=== PATIENT | female | born 1950 | race Caucasian/White ===

== ENCOUNTER 2019-09-03 12:00 | Outpatient (CLI) | payer MEDICARE, SELFPAY | END 2019-09-03 12:01 | disposition home or self-care (01) | LOC: SLEEP 09-08 08:51 | PROVIDERS: Family Provider Family Medicine; PCP Family Medicine; Visit Provider Family Medicine | DX: G47.30 Sleep apnea, unspecified (principal) | CPT/HCPCS: G0399 ==

== ENCOUNTER 2020-02-16 20:00 | Outpatient (CLI) | payer MEDICARE, SELFPAY | END 2020-02-16 20:01 | disposition home or self-care (01) | LOC: SLEEP 02-17 10:01 | PROVIDERS: Family Provider Family Medicine; PCP Family Medicine; Visit Provider Family Medicine | DX: G47.30 Sleep apnea, unspecified (principal) | CPT/HCPCS: 95811 ==

== ENCOUNTER → 2022-06-21 07:49 | Outpatient (BNVA) | payer MEDICARE, SELFPAY | PROVIDERS: Family Provider Family Medicine; PCP Family Medicine; Visit Provider Specialist | DX: M17.0 Bilateral primary osteoarthritis of knee (principal) | CPT/HCPCS: 73560; 73565; 99204 ==

== ENCOUNTER → 2022-08-10 08:48 | Outpatient (BNVA) | payer MEDICARE, SELFPAY | PROVIDERS: Family Provider Family Medicine; PCP Family Medicine; Visit Provider Specialist | DX: M17.0 Bilateral primary osteoarthritis of knee (principal) | CPT/HCPCS: 20610; J7318 ==

== ENCOUNTER → 2023-02-06 10:38 | Outpatient (BNVA) | payer MEDICARE, SELFPAY | PROVIDERS: Family Provider Family Medicine; PCP Family Medicine; Visit Provider Nurse Practitioner Family | DX: L90.0 Lichen sclerosus et atrophicus (principal); D22.5 Melanocytic nevi of trunk; L81.4 Other melanin hyperpigmentation; L85.3 Xerosis cutis; L57.0 Actinic keratosis | CPT/HCPCS: 17000; 17003; 99213 ==

== ENCOUNTER → 2023-02-08 14:06 | Outpatient (BNVA) | payer MEDICARE, SELFPAY | PROVIDERS: Family Provider Family Medicine; PCP Family Medicine; Visit Provider Specialist | DX: M17.0 Bilateral primary osteoarthritis of knee (principal) | CPT/HCPCS: 20610; J7318 ==

== ENCOUNTER → 2023-05-17 10:48 | Outpatient (BNVA) | payer MEDICARE, SELFPAY | PROVIDERS: Family Provider Family Medicine; PCP Family Medicine; Visit Provider Specialist | DX: M17.0 Bilateral primary osteoarthritis of knee (principal) | CPT/HCPCS: 20610; J1100; J2795; J3301 ==

== ENCOUNTER → 2023-08-16 09:27 | Outpatient (BNVA) | payer MEDICARE, SELFPAY | PROVIDERS: Family Provider Family Medicine; PCP Family Medicine; Visit Provider Specialist | DX: M17.0 Bilateral primary osteoarthritis of knee (principal) | CPT/HCPCS: 20610; J1100; J2795; J3301 ==

== ENCOUNTER 2023-10-09 12:03 | Inpatient (IN) | payer MEDICARE, SELFPAY ==
[2023-10-09] VITALS (8 sets, daily range): BP systolic 134–181; BP diastolic 77–87; PULSE 81–95; RESP 17–24; TEMP 36.5–36.7; O2SAT 79–94; BMI 51.3; BMI 51.7
--- NOTE | 2023-10-09 12:14 | XR_ITS ---
WS: [id number] Portable AP upright chest, 10/09/2023 Clinical Data: sob Comparison: None. Findings: No nodules, masses or effusions are seen. The heart is slightly enlarged. The pulmonary vas cularity is not increased. No pneumonia or pneumothorax is seen. The aortic arch shows mild tortuosit y Impression: Cardiomegaly and atherosclerosis.
--- NOTE | 2023-10-09 12:16 | ECG_ITS ---
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 Measurements Intervals [place] Rate: 88 P: 81 TN: 164 QRS: 51 QRSD: 89 T: 74 QT: 369 QTc: 447 Interpretive Statements SINUS RHYTHM No previous ECG available for comparison Electronically Signed On 10-09-2023 21:30:48 CDT by Jake Montgomery M.D. [id number]
[2023-10-09 12:24] LABS: ABG PH Result 7.48 (7.35-7.45); Arterial Blood Gas Hematocrit 42.7 % (37-47); Blood Gas Allen Test Pos; Blood Gas Operator Identificat WALCI; Blood Gas Sample Site Radial, left; Blood Gas Sample Type Arterial; Carboxyhemoglobin 0.5 %THgb (0.4-20.1); HCO3 ABG 26.5 mmol/L (22-26); HGB O2 Sat 86.8 % (95-100); Methemoglobin 0.2 % (0.4-1.5); Oxygen Device ROOM AIR; PO2 ABG 51.2 mmHg (80.0-100.0); PO2 FiO2 Ratio Arterial Blood 0; Total Hemoglobin 13.9 g/dL (12-16)
--- NOTE | 2023-10-09 12:24 | W.ED.SOB ---
HPI - SOB/Dyspnea General: Chief Complaint: Shortness of Breath/Dyspnea Stated Complaint: sob Time Seen by Provider: 10/09/23 12:04 Source: patient Mode of arrival: ambulatory Limitations: no limitations History of Present Illness: HPI Narrative: 73-year-old female is sent here from the clinic for shortness of breath. She states she has a history of allergies and over the last week she has had a nonproductive cough with congestion states she is also has increasing exertional dyspnea. Patient states that her pulse ox was in the low 80s at her physician's office. At rest here her pulse ox is 90%9 Associated symptoms: Deny abdominal pain, chest pain, fever(s), nausea or vomiting Review of Systems Const: Denies: fever(s) or chills ENMT: Denies: throat pain or dental pain Card: Denies: chest pain Resp: Reports: dyspnea and non-productive cough GI: Denies: abdominal pain, nausea, vomiting or diarrhea Musc: Denies: neck pain or back pain Skin/Breast: Denies: rash Neuro: Denies: headache(s) PFSH ED PFSH: Surgical History H/O lateral meniscus repair of left knee Family History Mother Diabetes Father Diabetes Social History Smoking and tobacco/nicotine status: former use of tobacco/nicotine Second hand smoke exposure: No Alcohol intake: current Alcohol intake frequency: holidays/special occasions only Alcohol type: wine Substance/Drug Use: never Adopted: No Caregiver/support person: No Lives independently: Yes Household members: family Housing: House Number of children: 1 Number of grandchildren: 4 Highest education level completed: Some College, No Degree service: No Current occupational status: retired Current occupational exposures/hazards: No Pets and animals: Yes Sexually active: No Do you think of yourself as: Straight/Heterosexual Current gender identity: Female Special elinor needs: No Agree to transfusion: Yes Physical Exam Const: COMMON NORMALS: patient oriented x3 HENMT: COMMON NORMALS: normocephalic and atraumatic HEAD & SCALP: normocephalic and atraumatic Eye: COMMON NORMALS: conjunctivae normal CONJUNCTIVA: Yes conjunctivae normal Neck/C-Spine: COMMON NORMALS: full ROM and supple Chest: COMMONS NORMALS: normal inspection of the chest and normal palpation of entire chest wall Resp: COMMON NORMALS: normal respiratory effort, No retractions, No use of accessory muscles and clear to auscultation bilaterally AUSCULTATION: clear to auscultation bilaterally Cardio: COMMON NORMALS: regular rate, regular rhythm and No murmurs present (Cardio) RATE: regular rate RHYTHM: regular rhythm Extremity: COMMON NORMALS: normal to inspection and full ROM Neuro: COMMON NORMALS: patient oriented x3, moves all extremities and no focal motor deficits Psych: COMMON NORMALS: mental status grossly normal, Normal thought process present and cooperative THOUGHT PROCESS: Normal thought process present Skin: COMMON NORMALS: no rashes or lesions noted and no wounds GENERAL SKIN EXAM: no rashes or lesions noted Course Vital Signs: Vital signs: Vital Signs Temperature 98.0 F 10/09/23 12:07 Pulse Rate 84 10/09/23 12:48 Respiratory Rate 17 10/09/23 12:41 Blood Pressure 181/77 10/09/23 12:07 Pulse Oximetry 94 10/09/23 12:41 Oxygen Delivery Me thod Nasal Cannula 10/09/23 12:41 Oxygen Flow Rate 2 10/09/23 12:41 MDM - SOB/Dyspnea Medical Decision Making Patient presents here with shortness of breath especially exertional CTA does show pulmonary emboli she is requiring 2 L oxygen here will start on heparin I spoke to hospitalist will admit at this time. Medical Records I reviewed the patient's medical records. Lab Data I reviewed the patient's lab results. 10/09/23 12:51 10/09/23 12:51 Labs/Radiology: Laboratory Results WBC 10.33 10^3/uL (3.29-11.43) 10/09/23 12:51 RBC 5.31 10^6/uL (3.85-5.65) 10/09/23 12:51 Hgb 13.60 g/dL (11.27-16.99) 10/09/23 12:51 Hct 44.4 % (36-47) 10/09/23 12:51 MCV 83.6 fl (85-98) L 10/09/23 12:51 MCH 25.6 pg (27-33) L 10/09/23 12:51 MCHC 30.6 g/dL (30-55) 10/09/23 12:51 RDW 14.7 % (12.1-15.1) 10/09/23 12:51 Plt Count 244 10^3/cmm (157-399) 10/09/23 12:51 MPV 10.6 fL (7.4-10.4) H 10/09/23 12:51 Neut % (Auto) 72.6 % 10/09/23 12:51 Lymph % (Auto) 19.7 % 10/09/23 12:51 [place] % (Auto) 5.9 % 10/09/23 12:51 Eos % (Auto) 0.9 % 10/09/23 12:51 Baso % (Auto) 0.4 % 10/09/23 12:51 Neut # (Auto) 7.50 10^3/uL (1.8-7.7) 10/09/23 12:51 Lymph # (Auto) 2.0 10^3/uL (0.8-4.8) 10/09/23 12:51 [place] # (Auto) 0.6 10^3/uL (0.2-0.9) 10/09/23 12:51 Eos # (Auto) 0.1 10^3/uL (0.0-0.8) 10/09/23 12:51 Baso # (Auto) 0.0 10^3/uL (0.0-0.1) 10/09/23 12:51 Nucleated RBC % (auto) 0 % 10/09/23 12:51 Nucleated RBCs # 0.0 /100WBC 10/09/23 12:51 D-Dimer 8.66 ug/mLFEU (0-0.59) H 10/09/23 12:51 Specimen Type Arterial 10/09/23 12:13 Sample Site Radial, left 10/09/23 12:13 ABG pH 7.48 (7.35-7.45) H 10/09/23 12:13 ABG pCO2 36.0 mmHg (35-45) 10/09/23 12:13 ABG pO2 51.2 mmHg (80.0-100.0) L 10/09/23 12:13 ABG PO2/FiO2 Ratio 0 10/09/23 12:13 ABG HCO3 26.5 mmol/L (22-26) H 10/09/23 12:13 ABG Base Excess 3.0 mmol/L (-2.0-2.0) H 10/09/23 12:13 Sal Test Pos 10/09/23 12:13 Hematocrit 42.7 % (37-47) 10/09/23 12:13 Hgb O2 Saturation 86.8 % (95-100) L 10/09/23 12:13 Carboxyhemoglobin 0.5 %THgb (0.4-20.1) 10/09/23 12:13 Methemoglobin 0.2 % (0.4-1.5) L 10/09/23 12:13 Total Hemoglobin 13.9 g/dL (12-16) 10/09/23 12:13 O2 Delivery Device Room air 10/09/23 12:13 FiO2 21.0 % 10/09/23 12:13 Assistant Golf Professional ID [place] 10/09/23 12:13 Sodium 137 mmol/L (136-145) 10/09/23 12:51 Potassium 4.0 mmol/L (3.5-5.1) 10/09/23 12:51 Chloride 98 mmol/L (98-107) 10/09/23 12:51 Carbon Dioxide 25 mmol/L (22-29) 10/09/23 12:51 Anion Gap 18.0 (5-19) 10/09/23 12:51 BUN 14 mg/dL (8-23) 10/09/23 12:51 Creatinine 0.7 mg/dL (0.5-0.9) 10/09/23 12:51 GFR Calculation Not Reportable 10/09/23 12:51 Glucose 97 mg/dL (65-115) 10/09/23 12:51 Calculated Osmolality 284 mOsm/kg (285-295) L 10/09/23 12:51 Calcium 9.3 mg/dL (8.5-10.5) 10/09/23 12:51 Total Bilirubin 0.9 mg/dL (0.15-1.2) 10/09/23 12:51 AST 20 U/L (0-32) 10/09/23 12:51 ALT 15 U/L (0-33) 10/09/23 12:51 Alkaline Phosphatase 111 U/L (35-105) H 10/09/23 12:51 NT-Pro-B Natriuret Pep 69 pg/mL (0-125) 10/09/23 12:51 Total Protein 7.0 g/dL (6.6-8.7) 10/09/23 12:51 Albumin 4.1 g/dL (3.5-5.2) 10/09/23 12:51 Globulin 2.9 g/dL (1.3-4.6) 10/09/23 12:51 Influenza Type A Ag Negative (Negative) 10/09/23 12:47 Influenza Type B Ag Negative (Negative) 10/09/23 12:47 SARS-CoV-2 Ag (Rapid) negative (Negative) 10/09/23 12:47 All radiology interpretation(s) finalized by discharge EKG Data EKG 1: I personally reviewed and interpreted this EKG as follows: EKG Interpretation Date: 10/09/23 EKG interpretation time: 12:16 Interpretation: nsr hr [address] or t wave abnormalities qrs 89 qtc 414 Critical Care Time Critical Care Time: Critical Care Time: Yes Total Critical Care Time: 40 Attestation: The high probability of a clinically significant, sudden or life threatening deterioration of the patient's respsystem(s) required my full and direct attention, intervention and personal management. The critical care time is as shown. This time is in addition to time spent performing any reported procedures but includes the following: [x] Data and vital sign review and interpretation [x] Patient assessment, examination and intervention [x] Documentation [x] Medication orders and management Discharge Plan Discharge Condition: Stable Prescriptions: No Action lisinopril-hydrochlorothiazide 20-25 mg tablet 1 tab PO QAM amlodipine 5 mg tablet 10 mg PO QAM fluticasone propionate [Flonase Allergy Relief] 50 mcg/actuation spray,suspension 1 spray intranasal DAILY PRN (Reason: Allergy Symptoms) Rx Instructions: administer into each nostril multivitamin Tablet 1 tab PO DAILY potassium chloride 10 mEq tablet extended release 10 meq PO QAM levothyroxine 100 mcg tablet 100 mcg PO QAM albuterol sulfate 90 mcg/actuation Hfa Aerosol Inhaler 2 puff INHALATION QID PRN (Reason: Shortness Of Breath Or Wheezing) fluoxetine 20 mg capsule 20 mg PO QAM Prilosec OTC 20 mg Tablet,Delayed Release (Dr/Ec) 20 mg PO .TWICE A WEEK magnesium oxide 400 mg magnesium Tablet 400 mg PO QAM clobetasol 0.05 % ointment 1 applic topical BID PRN (Reason: unknown) Rx Instructions: Apply to affected area no more than 2 weeks per month, not for face or skin folds. betamethasone dipropionate 0.05 % ointment 1 applic topical DAILY PRN (Reason: unknown) Rx Instructions: Apply to affected area M-F X 3 weeks, then as needed. Referrals: Emerald Knight MD [Primary Care Provider] - Coding Level of Care Code ED Rental Manager for [facility] Jose Alfredo
[2023-10-09] MEDS: ipratropium-albuterol 3 mL Neb INHALATION (12:40)
[2023-10-09 13:12] LABS: Basophils % 0.4 %; Eosinophils # 0.1 10^3/uL (0.0-0.8); Eosinophils % 0.9 %; Hematocrit 44.4 % (36-47); Lymphocytes % 19.7 %; Mean Corpuscular HGB Conc 30.6 g/dL (30-55); Mean Corpuscular Hemoglobin 25.6 pg (27-33); Mean Corpuscular Volume 83.6 fl (85-98); Mean Platelet Volume 10.6 fL (7.4-10.4); Monocytes # 0.6 10^3/uL (0.2-0.9); Monocytes % 5.9 %; Neutrophils % 72.6 %; Nucleated Red Blood Cells % 0 %; Platelet Count 244 10^3/cmm (157-399); Red Blood Count 5.31 10^6/uL (3.85-5.65); Red Cell Distribution Width 14.7 % (12.1-15.1); White Blood Count 10.33 10^3/uL (3.29-11.43)
[2023-10-09] MEDS: methylPREDNISolone sod succ 125 mg/2 mL INJ IVP (13:23)
[2023-10-09 13:24] LABS: SARS Covid-2 Antigen negative (Negative)
[2023-10-09 13:35] LABS: D Dimer 8.66 ug/mLFEU (0-0.59)
[2023-10-09 13:39] LABS: Influenza A by IFA Negative (Negative); Influenza B by IFA Negative (Negative)
--- NOTE | 2023-10-09 13:41 | CT_ITS ---
WS: [id number] CTA OF THE CHEST WITH PULMONARY EMBOLISM PROTOCOL TECHNIQUE: High-resolution contrast enhanced CTA of the chest with coronal and sagittal reformatted i mages with pulmonary embolism protocol. MIP images are also reviewed. CLINICAL INFORMATION: sob COMPARISON: None. DLP: 708.[address] scans at [facility] use at least one of these dose optimization techniques: automated e xposure control; mA and/or kV adjustment per patient size (includes targeted exams where dose is matc hed to clinical indication); or iterative reconstruction. FINDINGS: Proximal main pulmonary arteries are normal. Filling defects in the RIGHT greater than LEFT segmental and subsegmental pulmonary arteries bilaterally compatible with acute bilateral pulmonary embolus. E vidence of RIGHT heart strain. Recommend further evaluation with echocardiography. Normal caliber tho racic aorta. Subsegmental atelectasis in the lung bases. Cardiomegaly. No mediastinal or hilar lympha denopathy. No axillary lymphadenopathy. Small esophageal hiatal hernia. RIGHT adrenal adenoma. LEFT a drenal gland is normal. Hypertrophic changes thoracic spine. Calcified granulomas. Slight hazy ground glass attenuation within both lungs with shallow inspiration IMPRESSION: 1. Extensive bilateral acute pulmonary embolus in the RIGHT greater than LEFT segmental and subsegme ntal pulmonary arteries. 2. Evidence of RIGHT heart strain. Recommend echocardiography. 3. Shallow inspiration with bibasilar atelectasis and hazy groundglass attenuation likely due to air trapping. 4. Cardiomegaly. 5. Small esophageal hernia. Notified Basia Jansen MD at 10/09/2023 2:49 PM.
[2023-10-09 13:55] LABS: Alanine Aminotransferase 15 U/L (0-33); Albumin Level 4.1 g/dL (3.5-5.2); Alkaline Phosphatase 111 U/L (35-105); Blood Urea Nitrogen 14 mg/dL (8-23); Calcium 9.3 mg/dL (8.5-10.5); Carbon Dioxide 25 mmol/L (22-29); Chloride 98 mmol/L (98-107); Creatinine Clr Calc Pharmacy 93.6007; Globulin 2.9 g/dL (1.3-4.6); Glucose 97 mg/dL (65-115); NT Pro B Type Natriuretic Pept 69 pg/mL (0-125); Osmolality Calculated 284 mOsm/kg (285-295); Sodium 137 mmol/L (136-145); Total Bilirubin 0.9 mg/dL (0.15-1.2)
[2023-10-09 14:07] LABS: Aspartate Amino Transferase 20 U/L (0-32)
[2023-10-09] MEDS: iohexol 350 mg/mL 500 mL Btl (per mL) IV (14:43)
[2023-10-09 15:23] LABS: Troponin(5th) Baseline 15 ng/L (0-10)
[2023-10-09 15:29] LABS: Troponin 5 2HR 15.07 ng/L (0-10)
--- NOTE | 2023-10-09 15:31 | USCV_ITS ---
Elle Hilton Age: 73 Gender: F : 1950 Exam Date: 10/09/2023 18:21 Ordering Phys: Moshe Mccoy MD Technologist: CHAD [place] [facility] [place]: order says: pe, right heart strain. Patient was admitted for shortness of breath x 2 weeks. No hx cardiac intervention. BP: 181 / 77 HR: 79 Rhythm: Sinus Technical Quality: Adequate MEASUREMENTS (Male / Female) Normal Values 2D ECHO LV Diastolic Diameter PLAX 4.0 cm 4.2 - 5.9 / 3.9 - 5.3 cm IVS Diastolic Thickness 1.7 cm 0.6 - 1.0 / 0.6 - 0.9 cm IVS Systolic Thickness 2.0 cm LVPW Diastolic Thickness 1.5 cm 0.6 - 1.0 / 0.6 - 0.9 cm LVPW Systolic Thickness 1.6 cm LVOT Diameter 1.8 cm LV Ejection Fraction 2D Teich 58.3 % LV Ejection Fraction MOD 2C 69.5 % LV Ejection Fraction 2C AL 71.7 % LA Diameter 4.2 cm Aorta at Sinotubular Diameter 2.6 cm IVC Diameter 1.7 cm M-MODE LA Ao Ratio MM 1.5 AV Cusp Separation MM 1.8 cm DOPPLER AV Peak Velocity 197.0 cm/s LVOT Peak Velocity 146.0 cm/s AV Area Cont Eq vti 2.0 cm squared AV Area Cont Eq pk 1.9 cm squared MV Peak Velocity 117.0 cm/s MV Area PHT 3.1 cm squared Mitral E to A Ratio 0.6 TV Peak Velocity 252.5 cm/s TR Peak Velocity 267.0 cm/s TR Peak Gradient 28.5 mmHg TV Peak E Velocity 38.0 cm/s Right Atrial Pressure 3.0 mmHg Pulmonary Artery Systolic Pressu 31.5 mmHg PV Peak Velocity 94.0 cm/s FINDINGS Left Ventricle Left ventricle is normal in size. LV systolic function is normal with EF of 55 to 60%. No regional wall motion abnormalities are seen. Grade 1 diastolic dysfunction. Right Ventricle Normal in size and function Right Atrium Normal in size Left Atrium Normal in size Mitral Valve Structurally normal mitral valve. Aortic Valve Grossly normal. No significant stenosis or regurgitation. Tricuspid Valve Mild tricuspid regurgitation. Pulmonary artery systolic pressure is normal. Pulmonic Valve Not well visualized Pericardium Normal Aorta Mildly dilated ascending aorta with diameter of 3.6 cm. IVC Appears to be normal CONCLUSIONS LV systolic function is normal with EF of 55-60% Grade 1 diastolic dysfunction Mild tricuspid regurgitation Mildly dilated ascending aorta with diameter of 3.6cm No comparison studies are available Jake Montgomery MD (Electronically Signed) Final Date: 10 October 2023 11:39 S
--- NOTE | 2023-10-09 15:34 | P.HP_ITS ---
Providers/Chief Complaint 2 Primary Care Provider: Emerald Knight MD Chief Complaint: sob History of Present Illness Elle Hilton is a 73 year old female with past medical history of hypothyroidism, hypertension was sent in today from the primary care's office because of hypoxia. As per the patient she has been having difficulty in breathing which has been getting worse over last 2 weeks. At the primary care's office today on walk test her saturations dropped down to low 80s on room air hence she came to the ER. In the ER she was found to have elevated D-dimer and subsequently found to have bilateral pulmonary embolism with concerns for right heart strain. On examination she is sitting comfortably in bed, heart rate of 70 bpm saturating 94% on 2 L with blood pressure of 160/80 mmHg. Denies any chest pain, nausea, vomiting, headache, dizziness, history of bleeding diathesis, melena, history of stroke, recent sick contacts, but does give history of recent congestion and symptoms concerning for allergies though denies any fevers. Review of Systems 2 General: Reports: 10 or more systems reviewed and unremarkable except in HPI and below Const: Denies: fever(s), chills, body aches, change in appetite, change in weight, malaise, night sweats, diaphoresis, change in sleep pattern, daytime sleepiness or snoring Eyes: Denies: change in vision, blurry vision, photophobia, eye discomfort or eye discharge ENMT: Denies: throat pain, enlarged tonsils, hoarseness, mouth pain, oral sores, dry mouth, tinnitus, nasal congestion or post nasal drip Card: Denies: chest pain, palpitations, irregular heart rhythm, edema, swelling of feet/ankles, lightheadedness, syncope, pre-syncope, dyspnea on exertion, orthopnea, leg pain with exertion or acrocyanosis Resp: Denies: dyspnea, productive cough, non-productive cough, wheezing, stridor, pain on inspiration, change in phlegm color, hemoptysis or chest congestion GI: Denies: abdominal pain, nausea, vomiting, hematemesis, coffee ground emesis, dysphagia, heartburn, diarrhea, constipation, bloating, GI cramping, change in bowel habits, pain on defecation, hematochezia or melena : Denies: flank pain, dysuria, urinary frequency, urinary urgency, urinary hesitancy, nocturia or hematuria Musc: Denies: neck pain, back pain, extremity pain, joint pain, joint swelling, joint redness, joint stiffness or limited range of motion Neuro: Denies: headache(s), numbness in extremities, weakness in extremities, sensory changes, lack of coordination, difficulty walking, frequent falls, dizziness, vertigo, confusion, Slurred speech present, difficulty communicating thoughts or seizure-like activity Psych: Denies: anxiety, depression, mood swings, panic attacks, hopelessness or irritability Endo: Denies: polyuria, polydipsia, tired all the time, cold intolerance, excessive sweating, flushing or heat intolerance [place]onaldo/Lymph: Denies: easy bruising or easy bleeding All/Imm: Denies: tongue swelling, facial swelling or acute wheezing Medications/Allergies Home Medications Medication Instructions Recorded Confirmed Last Taken Type amlodipine 5 mg tablet 10 mg PO QA 06/21/22 10/09/23 10/09/23 History fluticasone propionate 50 1 spray intranasal DAILY PRN 06/21/22 10/09/23 Unknown History mcg/actuation nasal Allergy Symptoms spray,suspension (Flonase Allergy Relief) lisinopril 20 1 tab PO QAM 06/21/22 10/09/23 10/09/23 History mg-hydrochlorothiazide 25 mg tablet albuterol sulfate 90 mcg/actuation 2 puff inhalation QID PRN 10/09/23 10/09/23 Unknown History aerosol inhaler Shortness Of Breath Or Wheezing betamethasone dipropionate 0.05 % 1 applic topical DAILY PRN unknown 10/09/23 10/09/23 Unknown History topical ointment clobetasol 0.05 % topical ointment 1 applic topical BID PRN unknown 10/09/23 10/09/23 Unknown History fluoxetine 20 mg capsule 20 mg PO QAM 10/09/23 10/09/23 10/09/23 History levothyroxine 100 mcg tablet 100 mcg PO QAM 10/09/23 10/09/23 10/09/23 History magnesium oxide 400 mg PO QAM 10/09/23 10/09/23 10/09/23 History multivitamin 1 tab PO DAILY 10/09/23 10/09/23 Unknown History omeprazole magnesium 20 mg 20 mg PO .TWICE A WEEK 10/09/23 10/09/23 Unknown History tablet,delayed release (Prilosec OTC) potassium chloride 10 mEq 10 meq PO QAM 10/09/23 10/09/23 10/09/23 History tablet,extended release Allergies Allergy/AdvReac Type Severity Reaction Status Date / Time Penicillins Allergy Mild hives Verified 10/09/23 13:00 PFSH Acute 2 PFSH: Medical History (Updated 10/09/23 @ 15:50 by Moshe Mccoy MD) Hypothyroid Hypertension Surgical History (Updated 10/09/23 @ 15:50 by Moshe Mccoy MD) H/O: hysterectomy H/O lateral meniscus repair of left knee Family History Mother Diabetes Father Diabetes Social History Smoking and tobacco/nicotine status: former use of tobacco/nicotine Second hand smoke exposure: No Alcohol intake: current Alcohol intake frequency: holidays/special occasions only Alcohol type: wine Substance/Drug Use: never Adopted: No Caregiver/support person: No Lives independently: Yes Household members: family Housing: House Number of children: 1 Number of grandchildren: 4 Highest education level completed: Some College, No Degree service: No Current occupational status: retired Current occupational exposures/hazards: No Pets and animals: Yes Sexually active: No Do you think of yourself as: Straight/Heterosexual Current gender identity: Female Special elinor needs: No Agree to transfusion: Yes Vitals/I&O/Wt Last Vital Signs Temp 98.0 F 10/09/23 12:07 Pulse 84 10/09/23 12:48 Resp 17 10/09/23 12:41 BP 181/77 10/09/23 12:07 Pulse Ox 94 10/09/23 12:41 O2 Del Method Nasal Cannula 10/09/23 12:41 O2 Flow Rate 2 10/09/23 12:41 Weight last 48 hrs Weight 144.242 kg Physical Exam 2 Narrative: General: No acute distress, AO x3, morbidly obese HEENT: PERRLA, pupils bilaterally equal and reactive Chest: Normal vesicular breath sounds, no added sounds, equal good air entry bilaterally CVS: S1-S2 regular, no murmurs, no tachycardia, no gallops, no rubs Abdomen: Soft, nontender, no organomegaly, bowel sounds present Neuro: No focal deficits, no facial deformity, AO x3, power 5/5 in all limbs Data 10/09/23 12:51 10/09/23 12:51 A&P Assessment and plan (1) Pulmonary embolism with acute cor pulmonale: Seen on CTA. Concerns for right heart strain on CTA. Check lower limb Dopplers and echocardiogram. Oxygen supplementation keeping saturation over 90%. Start on heparin drip. Will plan for heparin drip for next 24 to 48 hours and then transition to oral anticoagulation. Patient does not have personal or family history of blood clots in the past, denies any sedentary lifestyle, recent long travels. Will plan for CT abdomen pelvis with contrast within next 24 hours to complete the workup to rule out malignancy. CTA of the chest negative for lymphadenopathy or mass. (2) Breathlessness on exertion: (3) Morbid obesity with BMI of 45.0-49.9, adult: (4) Hypertension: Goal blood pressure less than 140/90 mmHg. Continue with home dose of amlodipine, lisinopril and hydrochlorothiazide. Uptitrate as for goal blood pressures. Plan History of sleep apnea on BiPAP: Continue home settings. CODE STATUS: Daughter will be DPOA. Full code. Cardiac diet. Heparin drip will be sufficient for DVT prophylaxis Protonix for PUD prophylaxis Attestations 2 Medical Necessity Statement*: Admission for more than 2 midnights for management of bilateral pulmonary embolism with right heart strain Diagnoses Pulmonary embolism with acute cor pulmonale I26.09 Breathlessness on exertion R06.81 Morbid obesity with BMI of 45.0-49.9, adult E66.01; Z68.42 Hypertension I10
[2023-10-09 15:35] LABS: Troponin 5 2HR Delta 0.07 ABS# (0-10)
[2023-10-09] MEDS: heparin 5,000 unit/mL INJ 1 mL 4000 UNIT IVP (15:38)
[2023-10-09] MEDS: heparin drip 25,000 UNIT/500 ML PREMIX 34.6199999999999974 UNIT IV (15:43)
[2023-10-09 16:39] LABS: Thyroid Stimulating Hormone 2.42 uIU/mL (0.27-4.20)
--- NOTE | 2023-10-09 16:45 | ECG_ITS ---
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 Measurements Intervals [place] Rate: 81 P: 80 AR: 181 QRS: 29 QRSD: 89 T: 42 QT: 402 QTc: 467 Interpretive Statements SINUS RHYTHM MODERATE ST DEPRESSION [0.05+ mV ST DEPRESSION] Compared to ECG 10/09/2023 12:16:42 ST (T wave) deviation now present Electronically Signed On 10-09-2023 21:37:48 CDT by Jake Montgomery M.D. [email or web address] Technologyun[facility].[address]/store/OM/[id number]
[2023-10-09 17:51] LABS: Vitamin B12 239 pg/mL (232-1245)
[2023-10-09 20:12] LABS: Iron 49 ug/dL (37-145)
--- NOTE | 2023-10-09 20:45 | ECG_ITS ---
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 Measurements Intervals [place] Rate: 80 P: 75 [place]: 174 QRS: 3 QRSD: 97 T: 13 QT: 393 QTc: 454 Interpretive Statements SINUS RHYTHM POSSIBLE LEFT ATRIAL ENLARGEMENT [-0.1mV P-WAVE IN V1/V2] Compared to ECG 10/09/2023 17:13:39 ST (T wave) deviation no longer present Electronically Signed On 10-09-2023 21:42:18 CDT by Jake Montgomery M.D. [id number]
[2023-10-09 20:54] LABS: Add Urine Microscopic? YES; Bilirubin Urine Neg (Negative); Blood Urine 2+ (Negative); Glucose Urine UA 4+ (Normal); Ketones Urine 1+ (Negative); Leukocyte Esterase Urine Negative (Negative); Nitrate Urine Negative (Negative); Protein Urine Trace (Negative); Specific Gravity, Urine 1.015 (1.005-1.030); Urine Appearance Clear (CLEAR); Urine Color Yellow (Yellow); Urobilinogen Urine Neg (Negative); pH Urine 5 (5-7)
[2023-10-09 20:55] LABS: Add Urine Culture? No; Bacteria Urine TRACE /hpf; RBC Urine 0-4 /hpf (0-2); Squamous Epithelial Cell Urine 0-4 /hpf (0-5)
[2023-10-09] MEDS: ipratropium 0.5 mg/2.5 mL Neb INHALATION (21:20)
[2023-10-09] MEDS: levalbuterol 0.63 mg/3 mL Neb 0.630000000000000004 MG INHALATION (21:20)
[2023-10-09] MEDS: heparin drip 25,000 UNIT/500 ML PREMIX 34.7000000000000028 UNIT IV (21:20)
[2023-10-09] MEDS: budesonide 0.5 mg/2 mL Neb INHALATION (21:21)
--- NOTE | 2023-10-09 21:24 | PC.NURSE ---
Heparin drip order was put in by the ER doctor and did not have a protocol and could not be titrated. I called hospitalist and got a verbal order to change it to titratable protocol. I d/c'd the order put in by the ER doctor and started the correct order.
[2023-10-09 21:37] LABS: Troponin 5 6HR 10.15 ng/L (0-10)
[2023-10-09 21:38] LABS: Troponin 5 6HR Delta -4.85 ng/L (0-12)
[2023-10-09 22:07] LABS: Platelet Count 224 10^3/cmm (157-399)
[2023-10-09 22:22] LABS: Partial Thromboplastin Time 53.7 SECONDS (23.9-36.7)
[2023-10-09] MEDS: heparin 5,000 unit/mL INJ 1 mL IV (23:01)
[2023-10-10] VITALS (12 sets, daily range): BP systolic 112–158; BP diastolic 66–90; PULSE 65–82; RESP 16–18; TEMP 36.6–36.8; O2SAT 88–96
[2023-10-10] MEDS: ipratropium 0.5 mg/2.5 mL Neb INHALATION ×4 (01:54→20:40)
[2023-10-10] MEDS: levalbuterol 0.63 mg/3 mL Neb 0.630000000000000004 MG INHALATION ×4 (01:54→20:40)
[2023-10-10 04:28] LABS: Percent Saturation 12.2 % (20-50); Total Iron Binding Capacity 400 mcg/dl; Unsaturated Iron Binding 351 ug/dL (112-347)
[2023-10-10 05:18] LABS: Basophils % 0.1 %; Hematocrit 43.4 % (36-47); Lymphocytes # 0.8 10^3/uL (0.8-4.8); Lymphocytes % 8.5 %; Mean Corpuscular HGB Conc 29.5 g/dL (30-55); Mean Platelet Volume 10.5 fL (7.4-10.4); Monocytes # 0.2 10^3/uL (0.2-0.9); Monocytes % 1.8 %; Neutrophils # 8.49 10^3/uL (1.8-7.7); Neutrophils % 88.8 %; Nucleated Red Blood Cells % 0 %; Platelet Count 233 10^3/cmm (157-399); Red Blood Count 4.93 10^6/uL (3.85-5.65); Red Cell Distribution Width 14.4 % (12.1-15.1); White Blood Count 9.56 10^3/uL (3.29-11.43)
[2023-10-10] MEDS: levothyroxine 100 mcg Tablet PO (05:26)
[2023-10-10] MEDS: amlodipine 5 mg Tablet 10 MG PO (05:26)
[2023-10-10] MEDS: fluoxetine 20 mg Capsule PO (05:26)
[2023-10-10] MEDS: heparin drip 25,000 UNIT/500 ML PREMIX 37.7000000000000028 UNIT IV (05:30)
[2023-10-10 05:45] LABS: Alanine Aminotransferase 14 U/L (0-33); Albumin Level 4.1 g/dL (3.5-5.2); Alkaline Phosphatase 109 U/L (35-105); Anion Gap 16.2 (5-19); Aspartate Amino Transferase 11 U/L (0-32); Blood Urea Nitrogen 17 mg/dL (8-23); Calcium 9.4 mg/dL (8.5-10.5); Carbon Dioxide 24 mmol/L (22-29); Chloride 102 mmol/L (98-107); Creatinine Clr Calc Pharmacy 94.1289; Globulin 2.9 g/dL (1.3-4.6); Glucose 169 mg/dL (65-115); Magnesium 2.3 mg/dL (1.7-2.3); Osmolality Calculated 291 mOsm/kg (285-295); Phosphorus 2.9 mg/dL (2.5-4.5); Potassium 4.2 mmol/L (3.5-5.1); Sodium 138 mmol/L (136-145); Total Bilirubin 0.6 mg/dL (0.15-1.2)
[2023-10-10 05:47] LABS: Chol HDL Ratio 3.77 mg/dL (0.0-4.40); Cholesterol 196 mg/dL (0-200); HDL Cholesterol 52 mg/dL (60-100); LDL Cholesterol Calculated 122 mg/dL (50-129); LDL HDL Ratio 2.35 RATIO (0.00-3.22); Procalcitonin 0.06 ng/mL (0-0.5); Triglycerides 110 mg/dL (0-150)
[2023-10-10 05:53] LABS: Partial Thromboplastin Time 87.2 SECONDS (23.9-36.7)
[2023-10-10 06:07] LABS: Folate Level 9.1 ng/mL (4.8-37.3)
[2023-10-10 06:12] LABS: Estmated Average Glucose 134; Hemoglobin A1C 6.3 % (4.0-6.0)
[2023-10-10] MEDS: lisinopril 20 mg Tablet PO (07:24)
[2023-10-10] MEDS: hydroCHLOROthiazide 25 mg Tablet PO (07:24)
[2023-10-10 07:53] LABS: Partial Thromboplastin Time 80.1 SECONDS (23.9-36.7)
[2023-10-10] MEDS: budesonide 0.5 mg/2 mL Neb INHALATION ×2 (09:13→20:41)
[2023-10-10 13:01] LABS: Partial Thromboplastin Time 50.7 SECONDS (23.9-36.7)
[2023-10-10 13:22] LABS: CA 125 16.8 U/mL (0-35)
[2023-10-10] MEDS: heparin 5,000 unit/mL INJ 1 mL IV (13:31)
--- NOTE | 2023-10-10 14:24 | P.PN_ITS ---
Subjective 2 Subjective: No acute events overnight. Patient states she is feeling and breathing better today. Denies any nausea, vomiting, headache. No chest pain. Able to ambulate better back and forth from the bathroom. On 2 L saturating more than 90%. Vitals/I&O/Wt Last Vital Signs Temp 97.9 F 10/10/23 12:00 Pulse 76 10/10/23 14:00 Resp 18 10/10/23 12:00 BP 141/90 10/10/23 12:00 Pulse Ox 96 10/10/23 12:00 O2 Del Method Room Air 10/10/23 12:00 O2 Flow Rate 2 10/10/23 08:00 10/09/23 10/10/23 10/10/23 22:59 06:59 14:59 Intake Total 635.026 / 635.026 743.983 / 1379.009 818.202 / 818.202 Output Total 350 / 350 Balance 285.026 / 285.026 743.983 / 1029.009 818.202 / 818.202 Weight last 48 hrs Weight 146.142 kg Weight 145.558 kg Weight 145.331 kg Weight 144.242 kg Physical Exam 2 Narrative: General: No acute distress, AO x3, morbidly obese HEENT: PERRLA, pupils bilaterally equal and reactive Chest: Normal vesicular breath sounds, no added sounds, equal good air entry bilaterally CVS: S1-S2 regular, no murmurs, no tachycardia, no gallops, no rubs Abdomen: Soft, nontender, no organomegaly, bowel sounds present Neuro: No focal deficits, no facial deformity, AO x3, power 5/5 in all limbs Data 10/10/23 04:55 10/10/23 04:55 A&P Assessment and plan (1) Pulmonary embolism with acute cor pulmonale: Seen on CTA. Concerns for right heart strain on CTA. Check lower limb Dopplers and echocardiogram. Oxygen supplementation keeping saturation over 90%. Start on heparin drip. Will plan for heparin drip for next 24 to 48 hours and then transition to oral anticoagulation. Patient does not have personal or family history of blood clots in the past, denies any sedentary lifestyle, recent long travels. Will plan for CT abdomen pelvis with contrast within next 24 hours to complete the workup to rule out malignancy. CTA of the chest negative for lymphadenopathy or mass. (2) Breathlessness on exertion: (3) Morbid obesity with BMI of 45.0-49.9, adult: (4) Hypertension: Goal blood pressure less than 140/90 mmHg. Continue with home dose of amlodipine, lisinopril and hydrochlorothiazide. Uptitrate as for goal blood pressures. Plan History of sleep apnea on BiPAP: Continue home settings. Plan for the day: Continue with heparin drip for 24 more hours. Appreciate PTT Appreciate echocardiogram results without any right heart strain. Plan to transition over to oral anticoagulation tomorrow. Plan for CT abdomen pelvis with contrast in evening which will be 24 hours after CTA chest. Check CEA, CA125. Oxygen supplementation keeping saturation over 90%. Will need home O2 eval prior to discharge. A1c 6.3. Will discuss with patient regarding treatment for diabetes prior to discharge. CODE STATUS: Daughter will be DPOA. Full code. Cardiac diet. Heparin drip will be sufficient for DVT prophylaxis Protonix for PUD prophylaxis Attestations 2 Medical Necessity Statement*: Requires further hospitalization for management of bilateral pulmonary embolism with concerns for right heart strain on CTA Diagnoses Pulmonary embolism with acute cor pulmonale I26.09 Breathlessness on exertion R06.81 Morbid obesity with BMI of 45.0-49.9, adult E66.01; Z68.42 Hypertension I10
[2023-10-10 20:28] LABS: Partial Thromboplastin Time 67.7 SECONDS (23.9-36.7)
[2023-10-10] MEDS: heparin drip 25,000 UNIT/500 ML PREMIX 35.1000000000000014 UNIT IV (20:32)
[2023-10-11] VITALS (10 sets, daily range): BP systolic 130–162; BP diastolic 69–80; PULSE 58–74; RESP 17–19; TEMP 36.4–37.5; O2SAT 85–94
[2023-10-11] MEDS: ipratropium 0.5 mg/2.5 mL Neb INHALATION ×2 (02:24→09:24)
[2023-10-11] MEDS: levalbuterol 0.63 mg/3 mL Neb 0.630000000000000004 MG INHALATION ×2 (02:24→09:25)
[2023-10-11 02:51] LABS: Basophils % 0.2 %; Eosinophils % 0.1 %; Hematocrit 38.8 % (36-47); Lymphocytes # 2.2 10^3/uL (0.8-4.8); Mean Corpuscular HGB Conc 31.4 g/dL (30-55); Mean Corpuscular Hemoglobin 26.2 pg (27-33); Mean Corpuscular Volume 83.4 fl (85-98); Mean Platelet Volume 10.7 fL (7.4-10.4); Monocytes # 0.7 10^3/uL (0.2-0.9); Monocytes % 5.1 %; Neutrophils # 10.01 10^3/uL (1.8-7.7); Neutrophils % 77.1 %; Nucleated Red Blood Cells % 0 %; Platelet Count 244 10^3/cmm (157-399); Red Blood Count 4.65 10^6/uL (3.85-5.65); Red Cell Distribution Width 14.7 % (12.1-15.1); White Blood Count 12.98 10^3/uL (3.29-11.43)
[2023-10-11 03:20] LABS: Alanine Aminotransferase 15 U/L (0-33); Albumin Level 3.8 g/dL (3.5-5.2); Alkaline Phosphatase 96 U/L (35-105); Anion Gap 16.2 (5-19); Aspartate Amino Transferase 15 U/L (0-32); Blood Urea Nitrogen 21 mg/dL (8-23); Calcium 8.8 mg/dL (8.5-10.5); Carbon Dioxide 24 mmol/L (22-29); Chloride 102 mmol/L (98-107); Creatinine Clr Calc Pharmacy 94.3633; Globulin 2.9 g/dL (1.3-4.6); Glucose 138 mg/dL (65-115); Osmolality Calculated 291 mOsm/kg (285-295); Potassium 4.2 mmol/L (3.5-5.1); Sodium 138 mmol/L (136-145); Total Bilirubin 0.5 mg/dL (0.15-1.2); Total Protein 6.7 g/dL (6.6-8.7)
[2023-10-11] MEDS: levothyroxine 100 mcg Tablet PO (06:17)
[2023-10-11] MEDS: amlodipine 5 mg Tablet 10 MG PO (06:17)
[2023-10-11] MEDS: fluoxetine 20 mg Capsule PO (06:17)
[2023-10-11] MEDS: acetaminophen 325 mg Tablet 650 MG PO (07:51)
--- NOTE | 2023-10-11 08:00 | CTR_ITS ---
PROCEDURE INFORMATION: Exam: CT Abdomen And Pelvis With Contrast Exam date and time: 10/11/2023 9:06 AM Age: 73 years old Clinical indication: Other: SOB; Prior surgery; Surgery date: 6+ months; Surgery type: Hysterectomy; Additional info: Rule out malignancy TECHNIQUE: Imaging protocol: Computed tomography of the abdomen and pelvis with contrast. Radiation optimization: All CT scans at this facility use at least one of these dose optimization techniques: automated exposure control; mA and/or kV adjustment per patient size (includes targeted exams where dose is matched to clinical indication); or iterative reconstruction. Contrast material: OMNI 350; Contrast volume: 100 ml; Contrast route: INTRAVENOUS (IV); COMPARISON: CT angio chest PE protcl [id number] 10/09/2023 2:21 PM RADIATION DOSE METRICS: Total DLP (mGy-cm): 1524.33 FINDINGS: Lungs: Bibasilar linear opacities, likely atelectasis. No focal consolidation. Liver: Normal appearance of the liver. Gallbladder and bile ducts: No calcified stones or ductal dilation. Pancreas: No ductal dilation. Spleen: Unremarkable. Adrenal glands: Low-density 2.8 cm right adrenal mass, previously characterized as an adenoma and requiring no further follow-up. The left adrenal gland is unremarkable. Kidneys and ureters: Bilateral parapelvic cysts. No hydronephrosis. No renal calculi. Stomach and bowel: No obstruction. No mucosal thickening. Appendix: Normal appendix. Intraperitoneal space: No free air. No significant fluid collection. Vasculature: Unremarkable. Lymph nodes: No enlarged lymph nodes. Urinary bladder: Unremarkable as visualized. Reproductive: Unremarkable as visualized. Bones/joints: Unremarkable. No acute fracture. Soft tissues: Unremarkable. CT/CT abdomen pelvis w con* [id number] IMPRESSION: No acute findings. No evidence of malignancy.
[2023-10-11] MEDS: hydroCHLOROthiazide 25 mg Tablet PO (08:24)
[2023-10-11] MEDS: lisinopril 20 mg Tablet PO (08:24)
[2023-10-11] MEDS: iohexol 350 mg/mL 500 mL Btl (per mL) IV (09:17)
[2023-10-11] MEDS: budesonide 0.5 mg/2 mL Neb INHALATION (09:25)
--- NOTE | 2023-10-11 09:34 | P.DS_ITS ---
Discharge Providers Date of Admission: 10/09/23 16:04 Date of Discharge: October 11, 2023 Attending Provider at Admission: Moshe Mccoy MD Attending Provider at Discharge: Moshe Mccoy MD Primary Care Provider: Emerald Knight MD Diagnoses at Discharge Discharge Diagnosis (1) Pulmonary embolism with acute cor pulmonale: Status: Acute (2) Breathlessness on exertion: Status: Acute (3) Morbid obesity with BMI of 45.0-49.9, adult: Status: Acute (4) Hypertension: Status: Acute Reason for Visit Reason for Visit: sob Hospital Course Hospital Course Elle Hilton is a 73 year old female with past medical history of hypothyroidism, hypertension was sent in today from the primary care's office b ecause of hypoxia. As per the patient she has been having difficulty in breathing which has been getting worse over last 2 weeks. At the primary care's office today on walk test her saturations dropped down to low 80s on room air hence she came to the ER. In the ER she was found to have elevated D-dimer and subsequently found to have bilateral pulmonary embolism with concerns for right heart strain. On examination she is sitting comfortably in bed, heart rate of 70 bpm saturating 94% on 2 L with blood pressure of 160/80 mmHg. Denies any chest pain, nausea, vomiting, headache, dizziness, history of bleeding diathesis, melena, history of stroke, recent sick contacts, but does give history of recent congestion and symptoms concerning for allergies though denies any fevers. Patient was admitted to the hospital further evaluation and management of bilateral pulmonary embolism with right heart strain on CTA. She was started on anticoagulation with heparin drip. Given concerns for unprovoked PE CT abdomen pelvis was done to rule out any occult malignancy. Patient responded well to the treatment and her oxygenation and respiratory status has been improving. During hospitalization she was also found to have diabetes with A1c of 6.3 for which she has been discharged on oral hypoglycemics. She has been discharged in hemodynamically stable condition on oral hypoglycemic twice daily with advised to follow-up with a primary care provider within next 1 month for further adjustment of antidiabetic medication, she is to take Eliquis 10 mg twice daily for next 1 week followed by 5 mg twice daily. Discharge instructions were discussed in detail with the patient all the questions were answered. Physical Exam Narrative: General: No acute distress, AO x3, morbidly obese HEENT: PERRLA, pupils bilaterally equal and reactive Chest: Normal vesicular breath sounds, no added sounds, equal good air entry bilaterally CVS: S1-S2 regular, no murmurs, no tachycardia, no gallops, no rubs Abdomen: Soft, nontender, no organomegaly, bowel sounds present Neuro: No focal deficits, no facial deformity, AO x3, power 5/5 in all limbs Discharge Data Studies Completed and Pending Completed Studies During Hospitalization Category Date Time Status CT abdomen pelvis w con* [id number] Routine Cat Scan 10/11/23 08:00 Completed CTA chest [CT angio chest PE protcl [id number]] Stat Cat Scan 10/09/23 13:41 Completed XR chest 1V portable [id number] Stat Exams 10/09/23 12:14 Completed CV. echo complete* [id number] Stat Ultrasound 10/09/23 15:31 Completed Pending at discharge Category Date Time Status PTT [Partial Thromboplastin Time] Routine Lab 10/11/23 09:00 Ordered Platelet Count Q2D Lab 10/13/23 04:00 Ordered Radiology Impressions Abdomen/Pelvis CT 10/11/23 08:00 IMPRESSION: No acute findings. No evidence of malignancy. Echocardiogram: CONCLUSIONS LV systolic function is normal with EF of 55-60% Grade 1 diastolic dysfunction Mild tricuspid regurgitation Mildly dilated ascending aorta with diameter of 3.6cm No comparison studies are available Laboratory Results WBC 12.98 10^3/uL (3.29-11.43) H 10/11/23 02:46 RBC 4.65 10^6/uL (3.85-5.65) 10/11/23 02:46 Hgb 12.20 g/dL (11.27-16.99) 10/11/23 02:46 Hct 38.8 % (36-47) 10/11/23 02:46 MCV 83.4 fl (85-98) L D 10/11/23 02:46 MCH 26.2 pg (27-33) L 10/11/23 02:46 MCHC 31.4 g/dL (30-55) D 10/11/23 02:46 RDW 14.7 % (12.1-15.1) 10/11/23 02:46 Plt Count 244 10^3/cmm (157-399) 10/11/23 02:46 MPV 10.7 fL (7.4-10.4) H 10/11/23 02:46 Neut % (Auto) 77.1 % 10/11/23 02:46 Lymph % (Auto) 17.0 % 10/11/23 02:46 Mccone % (Auto) 5.1 % 10/11/23 02:46 Eos % (Auto) 0.1 % 10/11/23 02:46 Baso % (Auto) 0.2 % 10/11/23 02:46 Neut # (Auto) 10.01 10^3/uL (1.8-7.7) H 10/11/23 02:46 Lymph # (Auto) 2.2 10^3/uL (0.8-4.8) 10/11/23 02:46 Mccone # (Auto) 0.7 10^3/uL (0.2-0.9) 10/11/23 02:46 Eos # (Auto) 0.0 10^3/uL (0.0-0.8) 10/11/23 02:46 Baso # (Auto) 0.0 10^3/uL (0.0-0.1) 10/11/23 02:46 Nucleated RBC % (auto) 0 % 10/11/23 02:46 Nucleated RBCs # 0.0 /100WBC 10/11/23 02:46 APTT 68.0 SECONDS (23.9-36.7) H 10/11/23 02:46 D-Dimer 8.66 ug/mLFEU (0-0.59) H 10/09/23 12:51 Specimen Type Arterial 10/09/23 12:13 Sample Site Radial, left 10/09/23 12:13 ABG pH 7.48 (7.35-7.45) H 10/09/23 12:13 ABG pCO2 36.0 mmHg (35-45) 10/09/23 12:13 ABG pO2 51.2 mmHg (80.0-100.0) L 10/09/23 12:13 ABG PO2/FiO2 Ratio 0 10/09/23 12:13 ABG HCO3 26.5 mmol/L (22-26) H 10/09/23 12:13 ABG Base Excess 3.0 mmol/L (-2.0-2.0) H 10/09/23 12:13 Sal Test Pos 10/09/23 12:13 Hematocrit 42.7 % (37-47) 10/09/23 12:13 Hgb O2 Saturation 86.8 % (95-100) L 10/09/23 12:13 Carboxyhemoglobin 0.5 %THgb (0.4-20.1) 10/09/23 12:13 Methemoglobin 0.2 % (0.4-1.5) L 10/09/23 12:13 Total Hemoglobin 13.9 g/dL (12-16) 10/09/23 12:13 O2 Delivery Device Room air 10/09/23 12:13 FiO2 21.0 % 10/09/23 12:13 Electrical And Instrumentation Manager ID [place] 10/09/23 12:13 Sodium 138 mmol/L (136-145) 10/11/23 02:46 Potassium 4.2 mmol/L (3.5-5.1) 10/11/23 02:46 Chloride 102 mmol/L (98-107) 10/11/23 02:46 Carbon Dioxide 24 mmol/L (22-29) 10/11/23 02:46 Anion Gap 16.2 (5-19) 10/11/23 02:46 BUN 21 mg/dL (8-23) 10/11/23 02:46 Creatinine 0.8 mg/dL (0.5-0.9) 10/11/23 02:46 GFR Calculation Not Reportable 10/11/23 02:46 Glucose 138 mg/dL (65-115) H 10/11/23 02:46 Estimat Average Glucose 134 10/10/23 04:55 Hemoglobin A1c 6.3 % (4.0-6.0) H 10/10/23 04:55 Calculated Osmolality 291 mOsm/kg (285-295) 10/11/23 02:46 Calcium 8.8 mg/dL (8.5-10.5) 10/11/23 02:46 Phosphorus 2.9 mg/dL (2.5-4.5) 10/10/23 04:55 Magnesium 2.3 mg/dL (1.7-2.3) 10/10/23 04:55 Iron 49 ug/dL (37-145) 10/09/23 12:51 TIBC 400 mcg/dl 10/09/23 12:51 % Saturation 12.2 % (20-50) L 10/09/23 12:51 Unsat Iron Binding 351 ug/dL (112-347) H 10/09/23 12:51 Total Bilirubin 0.5 mg/dL (0.15-1.2) 10/11/23 02:46 AST 15 U/L (0-32) 10/11/23 02:46 ALT 15 U/L (0-33) 10/11/23 02:46 Alkaline Phosphatase 96 U/L (35-105) 10/11/23 02:46 Troponin T Baseline 15 ng/L (0-10) H 10/09/23 12:51 Troponin T 120 Minute 15.07 ng/L (0-10) H 10/09/23 14:56 Delta Troponin T 0.07 ABS# (0-10) 10/09/23 14:56 Troponin T Hi Sens 6Hr 10.15 ng/L (0-10) H 10/09/23 21:04 Troponin T Hi Sens 6Hr Delta -4.85 ng/L (0-12) L 10/09/23 21:04 NT-Pro-B Natriuret Pep 69 pg/mL (0-125) 10/09/23 12:51 Total Protein 6.7 g/dL (6.6-8.7) 10/11/23 02:46 Albumin 3.8 g/dL (3.5-5.2) 10/11/23 02:46 Globulin 2.9 g/dL (1.3-4.6) 10/11/23 02:46 Triglycerides 110 mg/dL (0-150) 10/10/23 04:55 Cholesterol 196 mg/dL (0-200) 10/10/23 04:55 LDL Cholesterol, Calc 122 mg/dL (50-129) 10/10/23 04:55 HDL Cholesterol 52 mg/dL (60-100) L 10/10/23 04:55 LDL/HDL Ratio 2.35 RATIO (0.00-3.22) 10/10/23 04:55 Cholesterol/HDL Ratio 3.77 mg/dL (0.0-4.40) 10/10/23 04:55 Carcinoembryonic Ag 1.0 ng/mL (0.0-4.7) 10/10/23 04:55 CA 125 Antigen 16.8 U/mL (0-35) 10/10/23 04:55 Vitamin B12 239 pg/mL (232-1245) 10/09/23 14:56 Folate 9.1 ng/mL (4.8-37.3) 10/10/23 04:55 Procalcitonin 0.06 ng/mL (0-0.5) 10/10/23 04:55 TSH 2.42 uIU/mL (0.27-4.20) 10/09/23 12:51 Urine Color Yellow (Yellow) 10/09/23 19:50 Urine Appearance Clear (CLEAR) 10/09/23 19:50 Urine pH 5 (5-7) 10/09/23 19:50 Ur Specific [place] 1.015 (1.005-1.030) 10/09/23 19:50 Urine Protein Trace (Negative) 10/09/23 19:50 Urine Glucose (UA) 4+ (Normal) H 10/09/23 19:50 Urine Ketones 1+ (Negative) H 10/09/23 19:50 Urine Blood 2+ (Negative) H 10/09/23 19:50 Urine Nitrate Negative (Negative) 10/09/23 19:50 Urine Bilirubin Neg (Negative) 10/09/23 19:50 Urine Urobilinogen Neg mg/dL (Negative) 10/09/23 19:50 Ur Leukocyte Esterase Negative (Negative) 10/09/23 19:50 Urine RBC 0-4 /hpf (0-2) H 10/09/23 19:50 Urine WBC None /hpf (0-5) 10/09/23 19:50 Ur Squamous Epith Cells 0-4 /hpf (0-5) H 10/09/23 19:50 Amorphous Sediment Not Reportable 10/09/23 19:50 Urine Bacteria Trace /hpf (NONE) 10/09/23 19:50 Influenza Type A Ag Negative (Negative) 10/09/23 12:47 Influenza Type B Ag Negative (Negative) 10/09/23 12:47 SARS-CoV-2 Ag (Rapid) negative (Negative) 10/09/23 12:47 Vitals Last Vital Signs Temp 98.0 F 10/11/23 07:31 Pulse 72 10/11/23 09:27 Resp 18 10/11/23 09:05 BP 130/70 10/11/23 07:31 Pulse Ox 93 10/11/23 09:05 O2 Del Method Room Air 10/11/23 09:05 O2 Flow Rate 2 10/10/23 14:00 FiO2 26 10/11/23 04:00 Discharge Plan Discharge Patient Disposition: Home Condition: Stable Prescriptions: New [place]rés DVT-PE Treat 30D Start 5 mg (74 tabs) tablets,dose pack 5 mg PO BID Qty: 74 6RF Rx Instructions: Take 10 mg twice daily for next 7 days followed by 5 mg twice daily Janumet 50-500 mg tablet 1 tab PO BID Qty: 60 0RF Continued lisinopril-hydrochlorothiazide 20-25 mg tablet 1 tab PO QAM amlodipine 5 mg tablet 10 mg PO QAM fluticasone propionate [Flonase Allergy Relief] 50 mcg/actuation spray,suspension 1 spray intranasal DAILY PRN (Reason: Allergy Symptoms) Rx Instructions: administer into each nostril multivitamin Tablet 1 tab PO DAILY potassium chloride 10 mEq tablet extended release 10 meq PO QAM levothyroxine 100 mcg tablet 100 mcg PO QAM albuterol sulfate 90 mcg/actuation Hfa Aerosol Inhaler 2 puff INHALATION QID PRN (Reason: Shortness Of Breath Or Wheezing) fluoxetine 20 mg capsule 20 mg PO QAM Prilosec OTC 20 mg Tablet,Delayed Release (Dr/Ec) 20 mg PO .TWICE A WEEK magnesium oxide 400 mg magnesium Tablet 400 mg PO QAM clobetasol 0.05 % ointment 1 applic topical BID PRN (Reason: unknown) Rx Instructions: Apply to affected area no more than 2 weeks per month, not for face or skin folds. betamethasone dipropionate 0.05 % ointment 1 applic topical DAILY PRN (Reason: unknown) Rx Instructions: Apply to affected area M-F X 3 weeks, then as needed. Discharge Orders: Discharge Order (Routine); Ordered 10/11/23 Ordered By: Moshe Mccoy Other Ambulatory Orders: DME: Oxygen (Order) Location: None Selected Ordered By: Moshe Mccoy Referrals: [facility] [place] [Outside] Emerald Knight MD [Primary Care Provider] - 10/18/23 1:30 pm Discharge Diet: Cardiac Discharge Activity: Resume usual activity and Increase activity as tolerated Patient Instructions: Sitagliptin/Metformin (By mouth), Apixaban (By mouth), Pulmonary Embolism (GEN), Opioid Safety Activity Restrictions/Additional Instructions: Take Eliquis 10 mg twice daily for next 1 week followed by 5 mg twice daily. Your A1c is more than 6. That means that you have early diabetes. You should be on medication for diabetes. For now you can take Janumet twice daily. Anibal anna talk to your primary care provider regarding possibility of Mounjaro. You should follow-up with a primary care provider within next 7 to 10 days. You should have a repeat A1c done in 6 months. Discharge Attestations Time Spent in Discharge Care*: greater than 30 min Specific Discharge Activities: educating patient, discussing with pcp/other providers, discussing with case manager/social workers/dc planners, documenting/other paperwork and evaluating patient/reviewing data Status at Discharge: Cognitive status at discharge: cognitively intact , Behavioral status at discharge: cooperative , Functional status at discharge: uses cane/walker , Overall status at discharge: patient is progressing back to baseline Quality Metrics Clinical Quality Measures [ Venous Thromboembolism { Contraindication to Overlap Therapy: None; Overlap threrpy ordered; VTE Discharge Education: Education about anticoagulant therapy/Care Notes given, Education about treatment options/disease process, Medication side effects education, INR/lab monitoring education as applicable, Follow-up arranged, Other; Deep Vein Thrombosis/Pulmonary Embolism Present on Admission: Yes;}] Coding Level of Care Code 89737 Total time (in minutes) for Discharge: 60 Diagnoses Pulmonary embolism with acute cor pulmonale I26.09 Breathlessness on exertion R06.81 Morbid obesity with BMI of 45.0-49.9, adult E66.01; Z68.42 Hypertension I10
[2023-10-11 10:02] LABS: Partial Thromboplastin Time 56.1 SECONDS (23.9-36.7)
== END 2023-10-11 13:37 | disposition home or self-care (01) | DRG 175 ==
LOC: ER 14:32 → MEDSURG 16:05
PROVIDERS: Internal Medicine; Admitting Provider Student in an Organized Health Care Education/Training Program; Emergency Provider Emergency Medicine; PCP Family Medicine; Visit Provider Student in an Organized Health Care Education/Training Program
DX: I26.09 Other pulmonary embolism with acute cor pulmonale (principal); Z68.43 Body mass index [BMI] 50.0-59.9, adult; E03.9 Hypothyroidism, unspecified; I10 Essential (primary) hypertension; R09.02 Hypoxemia; E66.01 Morbid (severe) obesity due to excess calories; Z11.52 Encounter for screening for COVID-19; Z87.891 Personal history of nicotine dependence
CPT/HCPCS: 36415; 36600; 51798; 71045; 71275; 74177; 80053; 80061; 81001; 82378; 82607; 82746; 82805; 83036; 83540; 83550; 83735; 83880; 84100; 84145; 84443; 84484; 85025; 85049; 85378; 85730; 86304; 87426; 87804; 93005; 93306; 94640; 94660; 94760; 96374; 99285; J1644; J2930; J7614; J7626; J7644; Q9967

== ENCOUNTER → 2023-12-07 09:04 | Outpatient (BNVA) | payer MEDICARE, SELFPAY | PROVIDERS: PCP Family Medicine; Visit Provider Specialist | DX: M17.0 Bilateral primary osteoarthritis of knee (principal) | CPT/HCPCS: 20610; J1100; J2795; J3301 ==

== ENCOUNTER 2023-12-27 12:58 | Oncology outpatient (recurring) (ONCR) | payer MEDICARE, SELFPAY ==
[2023-12-27 14:42] LABS: Basophils # 0.1 10^3/uL (0.0-0.1); Basophils % 0.4 %; Eosinophils % 0.2 %; Hematocrit 41.7 % (36-47); Lymphocytes # 2.1 10^3/uL (0.8-4.8); Lymphocytes % 14.9 %; Mean Corpuscular HGB Conc 31.4 g/dL (30-55); Mean Corpuscular Hemoglobin 26.1 pg (27-33); Mean Corpuscular Volume 83.2 fl (85-98); Mean Platelet Volume 10.3 fL (7.4-10.4); Monocytes # 0.8 10^3/uL (0.2-0.9); Monocytes % 5.6 %; Neutrophils # 11.13 10^3/uL (1.8-7.7); Neutrophils % 78.6 %; Nucleated Red Blood Cells % 0 %; Platelet Count 268 10^3/cmm (157-399); Red Blood Count 5.01 10^6/uL (3.85-5.65); Red Cell Distribution Width 15.5 % (12.1-15.1); White Blood Count 14.15 10^3/uL (3.29-11.43)
[2023-12-27 15:11] LABS: Alanine Aminotransferase 16 U/L (0-33); Albumin Level 3.9 g/dL (3.5-5.2); Alkaline Phosphatase 86 U/L (35-105); Aspartate Amino Transferase 11 U/L (0-32); Blood Urea Nitrogen 30 mg/dL (8-23); Calcium 9.3 mg/dL (8.5-10.5); Carbon Dioxide 23 mmol/L (22-29); Chloride 107 mmol/L (98-107); Globulin 2.8 g/dL (1.3-4.6); Glucose 117 mg/dL (65-115); Osmolality Calculated 303 mOsm/kg (285-295); Sodium 143 mmol/L (136-145); Total Bilirubin 0.5 mg/dL (0.15-1.2); Total Protein 6.7 g/dL (6.6-8.7)
[2023-12-27 15:27] LABS: D Dimer 0.52 ug/mLFEU (0-0.59)
[2024-01-02 14:10] LABS: PROTHROMBIN (FACTOR II) 20210G POSITIVE
[2024-01-03 17:45] LABS: Factor 5 Leiden Mutation NEGATIVE
== END 2024-01-20 23:59 | disposition home or self-care (01) ==
PROVIDERS: PCP Family Medicine; Visit Provider Internal Medicine
DX: I26.09 Other pulmonary embolism with acute cor pulmonale (principal)
CPT/HCPCS: 36415; 80053; 81241; 85025; 85210; 85378; 99203

== ENCOUNTER → 2024-03-14 08:40 | Outpatient (BNVA) | payer MEDICARE, SELFPAY | PROVIDERS: PCP Family Medicine; Visit Provider Specialist | DX: M17.0 Bilateral primary osteoarthritis of knee (principal); Z71.89 Other specified counseling | CPT/HCPCS: 20610; J1100; J2795; J3301 ==

== ENCOUNTER 2024-04-01 12:20 | Oncology outpatient (recurring) (ONCR) | payer MEDICARE, SELFPAY ==
[2024-04-01 12:35] LABS: Basophils % 0.2 %; Eosinophils % 0.3 %; Hematocrit 42.5 % (36-47); Lymphocytes # 2.3 10^3/uL (0.8-4.8); Lymphocytes % 16.7 %; Mean Corpuscular HGB Conc 31.5 g/dL (30-55); Mean Corpuscular Hemoglobin 26.4 pg (27-33); Mean Corpuscular Volume 83.8 fl (85-98); Mean Platelet Volume 9.7 fL (7.4-10.4); Monocytes # 0.9 10^3/uL (0.2-0.9); Monocytes % 6.3 %; Nucleated Red Blood Cells % 0 %; Platelet Count 277 10^3/cmm (157-399); Red Blood Count 5.07 10^6/uL (3.85-5.65); Red Cell Distribution Width 15.9 % (12.1-15.1); White Blood Count 13.56 10^3/uL (3.29-11.43)
[2024-04-01 12:54] LABS: D Dimer 0.39 ug/mLFEU (0-0.59)
[2024-04-01 12:56] LABS: Alanine Aminotransferase 15 U/L (0-33); Albumin Level 4.1 g/dL (3.5-5.2); Alkaline Phosphatase 79 U/L (35-105); Aspartate Amino Transferase 11 U/L (0-32); Blood Urea Nitrogen 22 mg/dL (8-23); Calcium 8.9 mg/dL (8.5-10.5); Carbon Dioxide 24 mmol/L (22-29); Chloride 100 mmol/L (98-107); Globulin 2.9 g/dL (1.3-4.6); Glucose 128 mg/dL (65-115); Osmolality Calculated 295 mOsm/kg (285-295); Sodium 140 mmol/L (136-145); Total Bilirubin 0.6 mg/dL (0.15-1.2)
== END 2024-04-21 23:59 | disposition home or self-care (01) ==
PROVIDERS: PCP Family Medicine; Visit Provider Internal Medicine
DX: I26.09 Other pulmonary embolism with acute cor pulmonale (principal); R06.81 Apnea, not elsewhere classified; Z87.891 Personal history of nicotine dependence; I10 Essential (primary) hypertension; Z79.01 Long term (current) use of anticoagulants; E66.9 Obesity, unspecified; Z68.43 Body mass index [BMI] 50.0-59.9, adult
CPT/HCPCS: 36415; 80053; 85025; 85378; 99214

== ENCOUNTER → 2024-06-27 09:13 | Outpatient (BNVA) | payer MEDICARE, SELFPAY | PROVIDERS: PCP Family Medicine; Visit Provider Specialist | DX: M17.0 Bilateral primary osteoarthritis of knee (principal); M21.162 Varus deformity, not elsewhere classified, left knee; M21.161 Varus deformity, not elsewhere classified, right knee; Z71.89 Other specified counseling | CPT/HCPCS: 20610; J1100; J2795; J3301 ==

== ENCOUNTER → 2024-10-03 09:58 | Outpatient (BNVA) | payer MEDICARE, SELFPAY | PROVIDERS: PCP Family Medicine; Visit Provider Specialist | DX: M17.0 Bilateral primary osteoarthritis of knee (principal); M21.162 Varus deformity, not elsewhere classified, left knee; M21.161 Varus deformity, not elsewhere classified, right knee; Z71.89 Other specified counseling | CPT/HCPCS: 20610; J1100; J2795; J3301; J9999 ==

== ENCOUNTER → 2025-01-09 10:09 | Outpatient (BNVA) | payer MEDICARE, SELFPAY | PROVIDERS: PCP Family Medicine; Visit Provider Specialist | DX: M17.0 Bilateral primary osteoarthritis of knee (principal) | CPT/HCPCS: 20610; J1100; J2795; J3301; J9999 ==

== ENCOUNTER → 2025-04-22 14:01 | Outpatient (BNVA) | payer MEDICARE, SELFPAY | PROVIDERS: PCP Family Medicine; Visit Provider Specialist | DX: M17.0 Bilateral primary osteoarthritis of knee (principal) | CPT/HCPCS: 20610; J1100; J2795; J3301; J9999 ==